=== PATIENT | female | born 1945 | race American Indian/Alaskan Native ===

== ENCOUNTER 2017-11-03 09:33 | Emergency (ER) | payer MEDICARE ==
[2017-11-03 10:07] VITALS: BP 142/81
[2017-11-03] MEDS ORDERED: MOTRIN PO ONE (11:12)
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
== END 2017-11-03 12:33 | disposition home or self-care (01) ==
LOC: ED 09:33
DX: S80.10XA Contusion of unspecified lower leg, initial encounter (principal); R51 Headache; V89.2XXA Person injured in unspecified motor-vehicle accident, traffic, initial encounter; Y93.89 Activity, other specified; Y99.8 Other external cause status; Y92.488 Other paved roadways as the place of occurrence of the external cause; I10 Essential (primary) hypertension; Z88.1 Allergy status to other antibiotic agents; Z88.6 Allergy status to analgesic agent
CPT/HCPCS: 70450; 99284

== ENCOUNTER 2018-01-23 12:15 | Outpatient (CLI) | payer MEDICARE ==
--- NOTE | 2018-01-23 14:17 | Mammography Report ---
BONE DEXA:01/23/18 12:15:00 CLINICAL: Postmenopausal. No comparison. TECHNIQUE: Two site bone DEXA performed on an Hologic scanner. FINDINGS: The average BMD of the lumbar spine L1-L4 is 0.991g/cm squared with a T-score of -1.4 and a Z-score of +1.1. The average BMD of the right hip is 0.812g/cm squared with a T-score of -1.4 and a Z-score of -0.2. IMPRESSION: WHO classification: Osteopenia with increased fracture risk based on both spine and right hip measurements. RECOMMENDATION: Clinical correlation and routine screening. DEFINITIONS: BMD = Bone Mineral Density T-score = BMD related to mean peak bone mass of young adult (mean expressed in Standard Deviation) Z-score = Age matched BMD expressed in SD World Health Organization (WHO) Diagnostic Criteria Normal T-score > -1 SD Osteopenia T-score between -1 and -2.4 SD Osteoporosis T-score -2.5 SD or below NOTE: BMD is not the only risk factor for fracture. One should also consider factors such as the patient's age, risk of falling, previous osteoporotic fracture, family history of osteoporotic fractures, current smoker, and low body weight. Z-scores are not calculated if >80 years of age.
== END 2018-01-23 12:16 | disposition home or self-care (01) ==
LOC: SPVWC 12:15
PROVIDERS: ATTEND Family Medicine
DX: M85.88 Other specified disorders of bone density and structure, other site (principal); Z78.0 Asymptomatic menopausal state
CPT/HCPCS: 77080